=== PATIENT | male | born 1985 | race Caucasian/White ===

== ENCOUNTER 2024-08-21 02:02 | Emergency (ER) | payer MEDICAID ==
[~2024-08-21] VITALS: Ht 172.7 cm; Wt 81.9 kg
[2024-08-21 02:10] VITALS: BP 85/47; TEMP 98.7; O2SAT 99
[2024-08-21 02:12] VITALS: PULSE 57; RESP 16; O2SAT 98
[2024-08-21] MEDS ORDERED: IBUP-2030 MT (03:22)
[2024-08-21] MEDS: IBUPROFEN 800MG TABLET PO ONE (03:30)
== END 2024-08-21 04:22 | disposition home or self-care (01) ==
LOC: ER 02:02
DX: H66.92 Otitis media, unspecified, left ear (principal)
CPT/HCPCS: 99282